=== PATIENT | male | born 2000 | race Caucasian/White ===

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

== ENCOUNTER 2021-07-13 10:32 | Emergency (ER) | payer OTHER, MEDICAID ==
[~2021-07-13] VITALS: Ht 182 cm; Wt 106.0 kg
[~2021-07-13 10:32] MED LIST changes: +PROM5SYR PO
[2021-07-13] MEDS ORDERED: ORPHENADRINE 60 MG/2 ML (NORFLEX) AMP (ED ONLY) IM ONE (11:00)
[2021-07-13] MEDS ORDERED: KETOROLAC 60 MG/2 ML VIAL IM ONE (11:00)
--- NOTE | 2021-07-13 11:03 | ED Back Pain ---
General Chief Complaint: Back Problems Stated Complaint: LOW BACK PAIN/MIGRAINE Nursing Triage Note: ARRIVED VIA AMB TO ROOM 08 WITH COMPLAINTS OF LOW BACK PAIN OFF AND ON X1 MONTH THAT HAS BECAME WORSE THIS AM. PT STATES IT DOES HURT TO PEE AT TIMES. Source of Information: Patient Exam Limitations: No Limitations (LEIGHANN NÚÑEZ APRN) History of Present Illness Date Seen by Provider: Jul 13, 2021 Time Seen by Provider: 11:01 Initial Comments to ER with left low back pain off and on for 1 month it became acutely worse last night. No difficulty urinating though he says maybe he is peeing a little less frequently than normal. No fevers no chills. History of kidney stones but he does not remember them he states. Pain does not radiate down either leg. No fever no chills. No loss of bowel or bladder control. Location: Lumbar Spine Timing/Duration: 1-2 Days, Getting Worse, Intermittent Severity: Moderate Pain/Injury Location: Back Associated Symptoms: lower back pain (LEIGHANN NÚÑEZ APRN) Allergies and Home Medications Allergies Coded Allergies: NKANo Known Allergies (Unverified Allergy, Mild, 10/21/08) Patient Home Medication List Home Medication List Reviewed: Yes (LEIGHANN NÚÑEZ APRN) Methocarbamol (Methocarbamol) 750 Mg Tablet, 750 MG PO Q6-8HR Prescribed by: LEIGHANN NÚÑEZ on 07/13/21 1104 Naproxen (Naproxen) 500 Mg Tablet, 500 MG PO Q12H Prescribed by: LEIGHANN NÚÑEZ on 07/13/21 1104 Discontinued Medications Amoxicillin (Amoxicillin) 500 Mg Capsule, 1,000 MG PO TID Discontinued Reason: No Longer Taking Prescribed by: ANGELA SCALES on 11/10/17 165 Last Action: Discontinued Promethazine HCl/Codeine (Prometh-Codein 6.25-10 mg/5 ml) 5 Ml Syrup, 5 ML PO Q4H PRN for COUGH Discontinued Reason: No Longer Taking Prescribed by: LEIGHANN NÚÑEZ on 01/30/202101 Last Action: Discontinued Review of Systems Constitutional: see HPI; No chills, No fever EENTM: see HPI Respiratory: no symptoms reported Cardiovascular: no symptoms reported Genitourinary: no symptoms reported Musculoskeletal: see HPI, back pain Skin: no symptoms reported Psychiatric/Neurological: No Symptoms Reported (LEIGHANN NÚÑEZ APRN) Past Rflojcw-Tggotb-Itepud Hx Immunizations Up To Date PED Vaccines UTD: Yes Second COVID19 Vaccination Tito: UNKNOWN COVID19 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: LYLE (LEIGHANN NÚÑEZ APRN) Past Medical History Surgeries: No Respiratory: No Cardiac: Yes (ENLARGED HEART) Neurological: No Genitourinary: No Gastrointestinal: No Musculoskeletal: Yes (MULTIPLE FACTURES- RT FALL FROM 2 STORY [place]) Endocrine: No HEENT: Yes (history of frequent strep throat) Cancer: No Psychosocial: Yes ADD/ADHD, Anxiety, Depression Integumentary: No (LEIGHANN NÚÑEZ APRN) Physical Exam Vital Signs Vital Signs - First Documented 07/13/21 10:40 Temp 36.0 Pulse 84 Resp 16 B/P (MAP) 175/76 (109) Pulse Ox 98 O2 Delivery Room Air (GEE MORRISON MD) Vital Signs Capillary Refill : Less Than 3 Seconds (LEIGHANN NÚÑEZ APRN) Height, Weight, BMI Height: 6'0" Weight: 200lbs. oz. 90.216499me; 32.00 BMI Method:Stated General Appearance: No Apparent Distress, WD/WN, Other (Alert and oriented very pleasant no distress rates pain at 8 out of 10.) Neck: Full Range of Motion, Normal Inspection Respiratory: No Accessory Muscle Use, No Respiratory Distress Gastrointestinal: Normal Bowel Sounds, Non Tender, Soft Back: Normal Inspection, CVA Tenderness (L) Extremity: Normal Capillary Refill, Normal Inspection Neurologic/Psychiatric: Alert, Oriented x3 Skin: Normal Color, Warm/Dry (LEIGHANN NÚÑEZ APRN) Progress/Results/Core Measures Results/Orders Lab Results Laboratory Tests Test 07/13/21 11:08 Range/Units Urine Color YELLOW Urine Clarity SL CLOUDY Urine pH 6.0 5-9 Urine Specific [place] >=1.030 1.016-1.022 Urine Protein NEGATIVE NEGATIVE Urine Glucose (UA) NEGATIVE NEGATIVE Urine Ketones NEGATIVE NEGATIVE Urine Nitrite NEGATIVE NEGATIVE Urine Bilirubin NEGATIVE NEGATIVE Urine Urobilinogen 1.0 < = 1.0 MG/DL Urine Leukocyte Esterase NEGATIVE NEGATIVE Urine RBC (Auto) NEGATIVE NEGATIVE Urine RBC NONE /HPF Urine WBC NONE /HPF Urine Squamous Epithelial Cells NONE /HPF Urine Crystals NONE /LPF Urine Bacteria NEGATIVE /HPF Urine Casts NONE /LPF Urine Mucus MODERATE H /LPF Urine Culture Indicated NO (GEE MORRISON MD) Vital Signs/I&O 07/13/21 07/13/21 10:40 12:33 Temp 36.0 Pulse 84 77 Resp 16 16 B/P (MAP) 175/76 (109) 143/75 Pulse Ox 98 96 O2 Delivery Room Air Room Air (GEE MORRISON MD) Blood Pressure Mean: 109 Departure Communication (Admissions) 1203-after the Toradol and Norflex he reports no improvement in his low back pain and intact worsening now with his headache. He gets migraines frequently. He rates it at 9 out of 10 no nausea. No neurologic deficit. GCS 15 converses appropriately. Walked down to CT on his own. 1226-now reports that he is getting super sleepy, his headache is better and he like to go home so he can sleep in his own bed. NAME: BEN CONNELL [facility] REC#: [id number] PT STATUS: REG ER : 2001 PHYSICIAN: LEIGHANN NÚÑEZ APRN ADMIT DATE: 07/13/21/ER Draft Date of Exam:07/13/21 CT ABD/PELVIS WO(KIDNEY STONE) PROCEDURE: CT urinary tract, rule out kidney stone. TECHNIQUE: Multiple contiguous axial images were obtained through the abdomen and pelvis without the use of intravenous contrast. Auto Exposure Controls were utilized during the CT exam to meet ALARA standards for radiation dose reduction. INDICATION: Back pain. Dysuria. COMPARISON: 09/03/2017. FINDINGS: Included portions of the lung bases are clear. CT ABDOMEN: Normal appendix is identified. Moderate air and stool is seen scattered throughout the colon. Small bowel loops are nondistended. The kidneys, adrenal glands, spleen, pancreas, and liver have an unremarkable noncontrast CT appearance. There is no loculated fluid collection, free fluid, nor free air within the abdomen. No abnormal mesenteric or retroperitoneal adenopathy is seen. Osseous structures show no acute abnormalities. CT PELVIS: Urinary bladder is unopacified and minimally distended. No calculi are seen within the urinary bladder. There is no loculated fluid collection, free fluid, nor free air. No abnormal lymph nodes are identified. Osseous structures show no acute abnormalities. IMPRESSION: 1. Moderate colonic air and stool. Please correlate for constipation. 2. Otherwise, no acute abnormalities are seen within the abdomen or pelvis. Dictated on workstation # [id number] Dict: 07/13/21 1139 Trans: 07/13/21 1145 [id number] Interpreted by: BARTOLO GUIDO MD Electronically signed by: (LEIGHANN NÚÑEZ APRN) Impression Primary Impression: Acute low back pain Disposition: 01 HOME, SELF-CARE Condition: Stable Departure-Patient Inst. Decision time for Depature: 11:03 (LEIGHANN NÚÑEZ APRN) Referrals: NO,LOCAL PHYSICIAN (PCP/Family) Primary Care Physician Patient Instructions: Low Back Pain ED Add. Discharge Instructions: 1. If pain persist follow-up with your regular doctor to schedule an MRI. Take medication as directed in the meantime. Return to ER for any worsening. All discharge instructions reviewed with patient and/or family. Voiced understanding. Scripts Naproxen (Naproxen) 500 Mg Tablet 500 MG PO Q12H for Renal Colic for 3 Days, #30 TAB Prov: LEIGHANN NÚÑEZ APRN 07/13/21 Methocarbamol (Methocarbamol) 750 Mg Tablet 750 MG PO Q6-8HR for Back Pain, #30 TAB Prov: LEIGHANN NÚÑEZ APRN 07/13/21 ATTENDING PHYSICIAN NOTE: I was physically present as attending physician in the emergency department during the care of this patient, but I was not directly involved in the decision making or delivery of care for this patient. (GEE MORRISON MD) LEIGHANN NÚÑEZ APRN Jul 13, 2021 11:03 GEE MORRISON MD Jul 14, 2021 20:20
[2021-07-13] MEDS ORDERED: NAPR-915 PO (11:04)
[2021-07-13] MEDS ORDERED: METH-732 PO (11:04)
[2021-07-13 11:15] LABS: BILIRUBIN,URINE NEGATIVE (NEGATIVE); CLARITY,URINE SL CLOUDY; COLOR,URINE YELLOW; GLUCOSE, URINE (UA) NEGATIVE (NEGATIVE); KETONES,URINE NEGATIVE (NEGATIVE); LEUKOCYTE ESTERASE ,URINE NEGATIVE (NEGATIVE); NITRITE,URINE NEGATIVE (NEGATIVE); PROTEIN,URINE NEGATIVE (NEGATIVE)
[2021-07-13 11:27] LABS: BACTERIA,URINE NEGATIVE /HPF
--- NOTE | 2021-07-13 11:45 | Diagnostic Imaging Report ---
PROCEDURE: CT urinary tract, rule out kidney stone. TECHNIQUE: Multiple contiguous axial images were obtained through the abdomen and pelvis without the use of intravenous contrast. Auto Exposure Controls were utilized during the CT exam to meet ALARA standards for radiation dose reduction. INDICATION: Back pain. Dysuria. COMPARISON: 09/03/2017. FINDINGS: Included portions of the lung bases are clear. CT ABDOMEN: Normal appendix is identified. Moderate air and stool is seen scattered throughout the colon. Small bowel loops are nondistended. The kidneys, adrenal glands, spleen, pancreas, and liver have an unremarkable noncontrast CT appearance. There is no loculated fluid collection, free fluid, nor free air within the abdomen. No abnormal mesenteric or retroperitoneal adenopathy is seen. Osseous structures show no acute abnormalities. CT PELVIS: Urinary bladder is unopacified and minimally distended. No calculi are seen within the urinary bladder. There is no loculated fluid collection, free fluid, nor free air. No abnormal lymph nodes are identified. Osseous structures show no acute abnormalities. IMPRESSION: 1. Moderate colonic air and stool. Please correlate for constipation. 2. Otherwise, no acute abnormalities are seen within the abdomen or pelvis. Dictated by: Dictated on workstation # [id number]
[2021-07-13] MEDS ORDERED: PROCHLORPERAZINE 10 MG/2ML INJ (COMPAZINE) ONE (12:01)
[2021-07-13] MEDS ORDERED: diphenhydrAMINE 50 MG/ML INJ (BENADRYL) ONE (12:01)
[2021-07-13] MEDS ORDERED: diphenhydrAMINE 50 MG/ML INJ (BENADRYL) IVP ONE (12:15)
[2021-07-13] MEDS ORDERED: PROCHLORPERAZINE 10 MG/2ML INJ (COMPAZINE) IV ONE (12:15)
[2021-07-13 12:33] VITALS: BP 143/75
== END 2021-07-13 12:33 | disposition home or self-care (01) ==
LOC: EDUNIT# 10:32 → ER 10:36
DX: M54.50 Low back pain, unspecified (principal)
CPT/HCPCS: 74176; 81000

== ENCOUNTER 2021-08-25 15:40 | Emergency (ER) | payer OTHER, MEDICAID ==
[~2021-08-25 15:40] MED LIST changes: +METH-732 PO; +NAPR-915 PO
[2021-08-25] MEDS ORDERED: LACTATED RINGERS 1,000 ML IV SCH (16:00)
[2021-08-25] MEDS ORDERED: HYOSCYAMINE 0.125 MG (LEVSIN) TAB PO ONE (16:00)
[2021-08-25] MEDS ORDERED: ONDANSETRON 4 MG/2 ML (SDV) Z0FRAN IVP ONE (16:00)
--- NOTE | 2021-08-25 16:00 | ED GI ---
General Chief Complaint: Abdominal/GI Problems Stated Complaint: BLOOD IN STOOL Source of Information: Patient Exam Limitations: No Limitations History of Present Illness Date Seen by Provider: Aug 25, 2021 Time Seen by Provider: 15:58 Initial Comments To ER by private vehicle with reports of 48 hours of abdominal cramping and diarrhea which has become bloody within the past 12 hours. Initially he had fever up to 101 at the onset of this. He had general malaise and fatigue. His and kids have been "shitting like crazy" as well. Timing/Duration: 1-2 Days Severity/Quality: Moderate, Cramping Location: Generalized Abdomen Radiation: No Radiation Activities at Onset: None Associated Symptoms: Denies Symptoms Allergies and Home Medications Allergies Coded Allergies: NKANo Known Allergies (Unverified Allergy, Mild, 10/21/08) Patient Home Medication List Home Medication List Reviewed: Yes Methocarbamol (Methocarbamol) 750 Mg Tablet, 750 MG PO Q6-8HR Prescribed by: LEIGHANN NÚÑEZ on 07/13/21 1104 Naproxen (Naproxen) 500 Mg Tablet, 500 MG PO Q12H Prescribed by: LEIGHANN NÚÑEZ on 07/13/21 1104 Review of Systems Review of Systems Constitutional: see HPI, fever, weakness EENTM: No Symptoms Reported Respiratory: No Symptoms Reported Cardiovascular: No Symptoms Reported Gastrointestinal: See HPI, Abdominal Pain, Diarrhea, Nausea Genitourinary: No Symptoms Reported Musculoskeletal: no symptoms reported Skin: no symptoms reported Psychiatric/Neurological: No Symptoms Reported Endocrine: No Symptoms Reported Hematologic/Lymphatic: No Symptoms Reported Past Jtlxkyn-Wdzmmj-Dxsten Hx Patient Social History Tobacco Use?: No Use of E-Cig and/or Vaping dev: No Substance use?: No Alcohol Use?: No Pt feels they are or have been: No Immunizations Up To Date PED Vaccines UTD: Yes First/Initial COVID19 Vaccinat: 2020 Second COVID19 Vaccination Tito: 201 COVID19 Vaccine Manufacturing Support Engineer: POORNIMA Past Medical History Surgeries: No Respiratory: No Cardiac: Yes (ENLARGED HEART) Neurological: No Genitourinary: No Gastrointestinal: No Musculoskeletal: Yes (MULTIPLE FACTURES- RT FALL FROM 2 STORY [place]) Endocrine: No HEENT: Yes (history of frequent strep throat) Cancer: No Psychosocial: Yes ADD/ADHD, Anxiety, Depression Integumentary: No Physical Exam Vital Signs Vital Signs - First Documented 4/6/22 15:50 Temp 36.6 Pulse 81 Resp 18 B/P (MAP) 141/81 (101) Pulse Ox 97 O2 Delivery Room Air Capillary Refill : Height/Weight/BMI Height: 6'0" Weight: 200lbs. oz. 90.931600zc; 32.00 BMI Method:Stated General Appearance: WD/WN, no apparent distress HEENT: PERRL/EOMI, normal ENT inspection Respiratory: normal breath sounds, no respiratory distress, no accessory muscle use Cardiovascular: regular rate, rhythm, no murmur Gastrointestinal: normal bowel sounds, non tender, soft Extremities: normal range of motion, non-tender Neurologic/Psychiatric: alert, normal mood/affect, oriented x 3 Skin: normal color, warm/dry Progress/Results/Core Measures Results/Orders Lab Results Laboratory Tests Test 08/25/21 15:30 08/25/21 15:58 Range/Units Urine Color ORANGE Urine Clarity SL CLOUDY Urine pH 5.5 5-9 Urine Specific [place] >=1.030 1.016-1.022 Urine Protein NEGATIVE NEGATIVE Urine Glucose (UA) NEGATIVE NEGATIVE Urine Ketones NEGATIVE NEGATIVE Urine Nitrite NEGATIVE NEGATIVE Urine Bilirubin NEGATIVE NEGATIVE Urine Urobilinogen 0.2 < = 1.0 MG/DL Urine Leukocyte Esterase NEGATIVE NEGATIVE Urine RBC (Auto) NEGATIVE NEGATIVE Urine RBC NONE /HPF Urine WBC NONE /HPF Urine Squamous Epithelial Cells NONE /HPF Urine Renal Epithelial Cells NONE /HPF Urine Crystals NONE /LPF Urine Bacteria NEGATIVE /HPF Urine Casts NONE /LPF Urine Mucus MODERATE H /LPF Urine Culture Indicated NO White Blood Count 5.5 4.3-11.0 10^3/uL Red Blood Count 4.91 4.30-5.52 10^6/uL Hemoglobin 13.3 13.3-17.7 g/dL Hematocrit 41 40-54 % Mean Corpuscular Volume 83 80-99 fL Mean Corpuscular Hemoglobin 27 25-34 pg Mean Corpuscular Hemoglobin Concent 33 32-36 g/dL Red Cell Distribution Width 12.6 10.0-14.5 % Platelet Count 274 130-400 10^3/uL Mean Platelet Volume 10.7 9.0-12.2 fL Immature Granulocyte % (Auto) 0 % Neutrophils (%) (Auto) 48 42-75 % Lymphocytes (%) (Auto) 32 12-44 % Monocytes (%) (Auto) 16 H 0-12 % Eosinophils (%) (Auto) 2 0-10 % Basophils (%) (Auto) 1 0-10 % Neutrophils # (Auto) 2.6 1.8-7.8 10^3/uL Lymphocytes # (Auto) 1.8 1.0-4.0 10^3/uL Monocytes # (Auto) 0.9 0.0-1.0 10^3/uL Eosinophils # (Auto) 0.1 0.0-0.3 10^3/uL Basophils # (Auto) 0.1 0.0-0.1 10^3/uL Immature Granulocyte # (Auto) 0.0 0.0-0.1 10^3/uL Sodium Level 141 135-145 MMOL/L Potassium Level 3.7 3.6-5.0 MMOL/L Chloride Level 100 98-107 MMOL/L Carbon Dioxide Level 25 21-32 MMOL/L Anion Gap 16 H 5-14 MMOL/L Blood Urea Nitrogen 12 7-18 MG/DL Creatinine 0.95 0.60-1.30 MG/DL Estimat Glomerular Filtration Rate 118 BUN/Creatinine Ratio 13 Glucose Level 88 70-105 MG/DL Calcium Level 9.5 8.5-10.1 MG/DL Corrected Calcium 9.3 8.5-10.1 MG/DL Total Bilirubin 0.4 0.1-1.0 MG/DL Aspartate Amino Transf (AST/SGOT) 22 5-34 U/L Alanine Aminotransferase (ALT/SGPT) 26 0-55 U/L Alkaline Phosphatase 65 40-136 U/L C-Reactive Protein High Sensitivity 7.02 H 0.00-0.50 MG/DL Total Protein 8.2 6.4-8.2 GM/DL Albumin 4.3 3.2-4.5 GM/DL My Orders Orders - LEIGHANN NÚÑEZ [employer]ANER Cbc With Automated Diff (08/25/21 15:56) Comprehensive Metabolic Panel (08/25/21 15:56) Hs C Reactive Protein (08/25/21 15:56) Ed Iv/Invasive Line Start (08/25/21 15:56) Ua Culture If Indicated (08/25/21 15:56) Stool Culture (08/25/21 15:56) Lactated Ringers (Lr 1000 Ml Iv Solution (08/25/21 16:00) Hyoscyamine Sl Tablet (Levsin Sl Tablet) (08/25/21 16:00) Ondansetron Injection (Zofran Injectio (08/25/21 16:00) Medications Given in ED Current Medications Medications Dose Ordered Sig/[place] Route Start Time Stop Time Status Last Admin Dose Admin Hyoscyamine Sulfate 0.125 mg ONCE ONCE PO 08/25/21 16:00 08/25/21 16:01 DC 08/25/21 16:09 0.125 MG Ondansetron HCl 8 mg ONCE ONCE IVP 08/25/21 16:00 08/25/21 16:01 DC 08/25/21 16:09 8 MG Vital Signs/I&O 08/25/21 15:50 Temp 36.6 Pulse 81 Resp 18 B/P (MAP) 141/81 (101) Pulse Ox 97 O2 Delivery Room Air Departure Impression Primary Impression: Diarrhea, infectious, adult Disposition: 01 HOME, SELF-CARE Condition: Stable Departure-Patient Inst. Decision time for Depature: 17:23 Referrals: NO,LOCAL PHYSICIAN (PCP) Primary Care Physician Add. Discharge Instructions: 1. Increase fluid intake. Do not use qbpy-yec-aqnpidi antidiarrheal medications. Antibiotic as directed. All discharge instructions reviewed with patient and/or family. Voiced understanding. Scripts Azithromycin (Azithromycin) 250 Mg Tablet 500 MG PO DAILY, #6 TAB 0 Refills Prov: LEIGHANN NÚÑEZ APRN 08/25/21 Work/School Note: Work Release Form Date Seen in the Emergency Department: Aug 25, 2021 Return to Work: Aug 27, 2021 LEIGHANN NÚÑEZ APRN Aug 25, 2021 16:00
[2021-08-25 16:38] LABS: BASOPHILS # (AUTO) 0.1 10^3/uL (0.0-0.1); BASOPHILS % (AUTO) 1 % (0-10); EOSINOPHILS # (AUTO) 0.1 10^3/uL (0.0-0.3); EOSINOPHILS % (AUTO) 2 % (0-10); HEMATOCRIT 41 % (40-54); HEMOGLOBIN 13.3 g/dL (13.3-17.7); LYMPHOCYTES # (AUTO) 1.8 10^3/uL (1.0-4.0); LYMPHOCYTES % (AUTO) 32 % (12-44); MEAN CORPUSCULAR HEMOGLOBIN 27 pg (25-34); MEAN CORPUSCULAR HGB CONC 33 g/dL (32-36); MEAN CORPUSCULAR VOLUME 83 fL (80-99); MEAN PLATELET VOLUME 10.7 fL (9.0-12.2); MONOCYTES # (AUTO) 0.9 10^3/uL (0.0-1.0); MONOCYTES % (AUTO) 16 % (0-12); NEUTROPHILS # (AUTO) 2.6 10^3/uL (1.8-7.8); NEUTROPHILS % (AUTO) 48 % (42-75); PLATELET COUNT 274 10^3/uL (130-400); WHITE BLOOD COUNT 5.5 10^3/uL (4.3-11.0)
[2021-08-25 16:38] LABS: BILIRUBIN,URINE NEGATIVE (NEGATIVE); CLARITY,URINE SL CLOUDY; COLOR,URINE ORANGE; GLUCOSE, URINE (UA) NEGATIVE (NEGATIVE); KETONES,URINE NEGATIVE (NEGATIVE); LEUKOCYTE ESTERASE ,URINE NEGATIVE (NEGATIVE); NITRITE,URINE NEGATIVE (NEGATIVE); PH,URINE 5.5 (5-9); PROTEIN,URINE NEGATIVE (NEGATIVE)
[2021-08-25 16:58] LABS: BACTERIA,URINE NEGATIVE /HPF
[2021-08-25 17:07] LABS: ALBUMIN 4.3 GM/DL (3.2-4.5); POTASSIUM 3.7 MMOL/L (3.6-5.0)
[2021-08-25 17:09] LABS: CALCIUM 9.5 MG/DL (8.5-10.1)
[2021-08-25 17:10] LABS: TOTAL PROTEIN 8.2 GM/DL (6.4-8.2)
[2021-08-25 17:12] LABS: BILIRUBIN,TOTAL 0.4 MG/DL (0.1-1.0)
[2021-08-25 17:13] LABS: CREATININE SERUM 0.95 MG/DL (0.60-1.30)
[2021-08-25] MEDS ORDERED: AZIT250T12 PO (17:30)
[2021-08-25 17:38] VITALS: BP 134/63
== END 2021-08-25 17:41 | disposition home or self-care (01) ==
LOC: EDUNIT# 15:40 → ER 15:43
DX: R19.7 Diarrhea, unspecified (principal)
CPT/HCPCS: 36415; 80053; 81000; 85025; 86141; 87015; 87045; 87046; 87899